=== PATIENT | female | born 1930 | race Asian ===

== ENCOUNTER 2016-10-26 16:05 | Emergency (ER) | payer BC ==
[~2016-10-26] VITALS: Ht 152.4 cm; Wt 56.7 kg
[~2016-10-26 16:05] MED LIST: ATEN-41 PO; CETI-101 PO; CHOL100035 PO; CLOP75TA2 PO; FAMO20TA8 PO; LIP40 PO; MONT10TA22 PO; RANI300T4 PO; [UNRECOGNIZED DRUG - CODE] PO
[2016-10-26 16:15] VITALS: BP_SYST 153
[2016-10-26] MEDS ORDERED: IPRATROPIUM BROM 0.5 MG/2.5 ML VIAL.NEB (ATROVENT) IH ONE (18:00)
[2016-10-26] MEDS ORDERED: ALBUTEROL SULFATE 0.083% 2.5 MG/3 ML VIAL.NEB IH ONE (18:00)
[2016-10-26] MEDS ORDERED: methylPREDNISolone SOD SUCC/PF 62.5 MG/ML VIAL IM ONE (18:00)
[2016-10-26 19:21] VITALS: BP_SYST 163
== END 2016-10-26 19:21 | disposition home or self-care (01) ==
LOC: SED 16:05
DX: J45.909 Unspecified asthma, uncomplicated (principal); I10 Essential (primary) hypertension; E11.9 Type 2 diabetes mellitus without complications; Z86.73 Personal history of transient ischemic attack (TIA), and cerebral infarction without residual deficits; Z91.02 Food additives allergy status; Z86.59 Personal history of other mental and behavioral disorders
CPT/HCPCS: 71020; 94640; 99284; J2930